=== PATIENT | male | born 1985 | race Caucasian/White ===

== ENCOUNTER → 2019-10-10 | Outpatient (CLI) | payer MEDICAID, SELFPAY ==
[2019-10-10 10:55] VITALS: BMI 40.6
== END | disposition home or self-care (01) ==
LOC: MTDU 17:42
PROVIDERS: PCP Family Medicine; Referring Provider Physician Assistant Surgical; Visit Provider Physician Assistant Surgical
DX: Z20.828 Contact with and (suspected) exposure to other viral communicable diseases (principal)
CPT/HCPCS: 87635; 94799; U0003

== ENCOUNTER 2021-10-26 21:32 | Emergency (ER) | payer MEDICAID, SELFPAY ==
[2021-10-26 21:33] VITALS: BP 139/84; PULSE 88; RESP 16; TEMP 36.4; O2SAT 96; BMI 42.2
[2021-10-26] MEDS: HYDROcodone Bitartrate/Apap 5/325 Tablet PO (22:10)
[2021-10-26] MEDS: Cephalexin 500 MG Capsule PO (22:10)
--- NOTE | 2021-10-26 22:18 | RAD_ITS ---
STUDY: X-RAY - LEFT HAND REASON FOR EXAM: Male, 36 years old. Injury/Pain nail punctured center of palm. patient pulled nail out earlier this evening but is now having swelling and severe pain. TECHNIQUE: 3 view(s) of the hand. COMPARISON: None. FINDINGS: BONES: No fracture demonstrated. JOINTS: No dislocation. SOFT TISSUES: Mild diffuse soft tissue swelling. No radiopaque foreign body identified. RAD/Hand Min 3 Views IMPRESSION: No evidence of fracture. Soft tissue swelling. Electronically Signed: Stacy Lucero MD at 22:45 EDT ,
--- NOTE | 2021-10-26 23:56 | EX.ED.UPPERE ---
HPI History of Present Illness HPI Narrative: Patient presents with puncture wound to his left hand that occurred today. Patient accidentally shot himself with a nail gun in his left hand. Patient states the nail almost went through and through and was tenting the skin on the dorsal surface of his hand. Patient states he pulled the nail out. Patient states that this pain has been getting progressively worse since removing the nail. Patient states it is worse with movement of his middle finger. Patient denies any paresthesias or weakness. Patient states his last tetanus was within 5 years. Patient denies any other injuries. Chief Complaint: Laceration Informant: patient Occured/Mechanism Mechanism/Context: Yes puncture wound Onset/Context/Timing Onset: Today Context: Sudden Onset Timing: Continuous Quality of Pain: Burning, Stabbing and Throbbing Worsened by: Movement Relieved by: Nothing Associated Symptoms Associated Symptoms: Negative for Parasthesia, Weakness or Loss of Funtion Narrative Tetanus Immunization: <5 years PFSH PFS Medical History Acute bronchitis, unspecified Acute maxillary sinusitis, unspecified Back problem Chronic headaches COVID-19 Fractured hand GERD (gastroesophageal reflux disease) Seasonal allergies Home Medications cephalexin 500 mg capsule 500 mg PO Q6 #40 CAPSULES 10/26/21 [Rx Last Taken Unknown] Allergy/AdvReac Type Severity Reaction Status Date / Time No Known Allergies Allergy Verified 10/26/21 21:36 Family History Father Arthritis Surgical History History of nasal surgery Social History Smoking Status: Current every day smoker tobacco type: cigarettes alcohol intake: current alcohol intake frequency: holidays/special occasions only substance use type: does not use what type of physical activity do you participate in: none ROS ROS ED Constitutional Constitutional ED: Denies chills or fever(s) Eyes Eyes: Denies blurry vision or change in vision ENT ENT ED: Denies rhinorrhea or sore throat Cardiovascular Cardiovascular: Denies chest pain or palpitations Respiratory/Chest Respiratory/Chest: Denies cough or dyspnea Gastrointestinal Gastrointestinal: Denies nausea or vomiting Genitourinary Genitourinary ED: Denies dysuria or hematuria Musculoskeletal Musculoskeletal: Denies back pain or neck pain Integumentary Denies abscess or rash Neurologic Neurologic: Denies headache(s) or weakness Allergic/Immunologic Allergic/Immunologic ED: Denies mouth swelling or urticaria EXAM Physical Exam Const Vital Signs: 10/26/21 21:33 Temperature 97.5 F L Temperature Source Temporal Pulse Rate 88 Respiratory Rate 16 Blood Pressure 139/84 H Blood Pressure Mean 102 Pulse Ox 96 Oxygen Delivery Method Room Air Positive well nourished and well developed General Appearance ED: well developed and NAD HEENT Reports moist mucous membranes normocephalic and atraumatic Neck full ROM Extremity Extremity Narrative: There is a puncture wound on the palmar aspect of the left hand. There is some tenderness over this area. There is some ecchymosis around the wound. There is no active bleeding. There is no bony crepitance or step-off. Range of motion was slightly limited in flexion extension of the third MP, PIP, and DIP joints secondary to pain. Sensation was intact to light touch in all digits. Capillary refills less than 2 seconds in all digits. Radial pulses are equal bilaterally. Neuro oriented x3, CN's II-XII intact bilaterally, moves all extremities, no focal motor deficits and no sensory deficits noted Sensorium / Orientation: alert Motor Exam: strength 5/5 throughout Psych mental status grossly normal MDM MDM MDM Narrative Medical decision making narrative: X-rays of the left hand were obtained. There are 3 views. On my interpretation, there is no acute fracture. There is no foreign body. Radiologist also interpreted the x-ray and agrees. Patient was advised of his findings. Patient was instructed to keep the wound clean and dry. Patient was given a prescription for Keflex. Patient was given his first dose here. Patient was instructed to ice and elevate the left hand. Patient was given restrictions for work. Patient was instructed to follow-up with his primary care physician in 5 to 7 days. Patient understood and was agreeable with the plan. All questions were answered. Radiography Diagnostic Testing: Clinical Impression(s) from Imaging Studies Hand X-Ray 10/26/21 22:18 IMPRESSION: No evidence of fracture. Soft tissue swelling. Electronically Signed: Stacy Lucero MD at 22:45 EDT , Discharge Plan Triage Chief Complaint: Laceration ED Provider: Darin Koch Dx/Rx/DC Orders Clinical Impression: Puncture wound of left hand without complication, Morbid obesity with BMI of 40.0-44.9, adult Instructions: ED Puncture Wound (General) Prescriptions: New cephalexin [cephalexin] 500 mg capsule 500 mg PO Q6 Qty: 40 0RF Stand Alone Forms: Work Status Form Primary Care Provider: Patrice Santana Referrals: Patrice Santana, [Primary Care Provider] - 3-5 Days Disposition Disposition: Home, Self Care
[2021-10-27 00:11] VITALS: BP 121/75; PULSE 66; RESP 18; O2SAT 95
== END 2021-10-27 00:19 | disposition home or self-care (01) ==
PROVIDERS: Emergency Provider Emergency Medicine; PCP Family Medicine; Visit Provider Emergency Medicine
DX: S61.432A Puncture wound without foreign body of left hand, initial encounter (principal); E66.01 Morbid (severe) obesity due to excess calories; Z68.41 Body mass index [BMI] 40.0-44.9, adult; F17.210 Nicotine dependence, cigarettes, uncomplicated; W29.4XXA Contact with nail gun, initial encounter
CPT/HCPCS: 73130; 99283

== ENCOUNTER → 2021-11-27 | Outpatient (CLI) | payer MEDICAID, SELFPAY ==
[2021-11-27 16:49] LABS: AST(SGOT) 21 U/L (15-37); Alanine Aminotransfer ALT/SGPT 41 U/L (16-61); Albumin, Serum 3.4 g/dL (3.2-5.0); Alkaline Phosphatase 91 U/L (45-117); Anion Gap 6 (5-15); BUN 10 mg/dL (7-18); BUN/Creat Ratio 9.1 RATIO (10-20); Calcium,Total 8.5 mg/dL (8.5-10.1); Chloride 109 mmol/L (98-107); EST Glomerular Filtration Rate 80 mL/min (>60); Est Glom Filt Rate - Afr Amer 97 mL/min (>60); Globulin 3.5 g/dL (2.2-4.2); Glucose 120 mg/dL (74-106); Potassium 4.1 mmol/L (3.5-5.1); Protein, Total 6.9 g/dL (6.4-8.2); Sodium Level 140 mmol/L (136-145)
== END | disposition home or self-care (01) ==
LOC: BIMLAB 15:26
PROVIDERS: PCP Family Medicine; Referring Provider Family Medicine; Visit Provider Family Medicine
DX: K21.9 Gastro-esophageal reflux disease without esophagitis (principal)
CPT/HCPCS: 36415; 80053

== ENCOUNTER → 2024-12-07 | Outpatient (CLI) | payer MEDICAID, SELFPAY ==
[2024-12-07 17:06] LABS: Hematocrit 44.2 % (40-54); Hemoglobin 15.4 g/dL (13.0-16.5); Mean Corp Hgb Conc 34.8 g/dL (32-36); Mean Corpuscular Volume 92.3 fL (80-94); Mean Platelet Vol. 12.0 fl (6.2-12.0); Platelet Count 200 K/mm3 (150-450); RBC Distribution Width CV 12.9 % (11.6-14.6); RBC Distribution Width SD 43.6 fl (35.1-43.9); Red Blood Count 4.79 M/mm3 (4.6-6.2); White Blood Count 10.0 K/mm3 (4.4-11.0)
[2024-12-07 17:40] LABS: AST(SGOT) 22 U/L (<=37); Alanine Aminotransfer ALT/SGPT 27 U/L (<=46); Albumin, Serum 4.3 g/dL (3.5-5.0); Alkaline Phosphatase 69 U/L (40-129); Anion Gap 10 (5-15); BUN 8 mg/dL (4-19); BUN/Creat Ratio 8.4 RATIO (10-20); Calcium,Total 9.2 mg/dL (7.6-11.0); Carbon Dioxide 23.8 mmol/L (21.0-32.0); Chloride 107 mmol/L (98-108); Globulin 2.3 g/dL (2.2-4.2); Glucose 109 mg/dL (70-99); Potassium 3.9 mmol/L (3.3-5.1)
== END | disposition home or self-care (01) ==
LOC: LAB 16:37
PROVIDERS: PCP Family Medicine; Referring Provider Family Medicine; Visit Provider Family Medicine
DX: F32.A Depression, unspecified (principal)
CPT/HCPCS: 36415; 80053; 84443; 85027